=== PATIENT | male | born 1980 | race Asian ===

== ENCOUNTER 2024-09-02 14:56 | Emergency (ER) | payer OTHER, SELFPAY ==
[2024-09-02 14:57] VITALS: BMI 25.9
[2024-09-02 14:58] VITALS: BP 134/75
[2024-09-02 15:23] LABS: % Basophils 0.4 % (0-2); % Eosinophils 0.7 % (0-6); % Immature Granulocytes 0.3 % (0-0.5); % Lymphocytes 16.7 % (20.5-51.1); % Monocytes 7.7 % (1.7-9.3); % Neutrophils 74.2 % (42.2-75.2); Absolute Eosinophils 0.1 10^3/uL (0-0.7); Absolute Lymphocytes 1.7 10^3/uL (1.2-3.4); Absolute Monocytes 0.8 10^3/uL (0.1-0.6); Absolute Neutrophils 7.7 10^3/uL (1.4-6.5); Hemoglobin 16.1 g/dL (13.0-18.0); Mean Corp Hgb Conc. 34.3 g/dL (33.0-37.0); Mean Corpuscular Hgb 29.7 pg (27.0-31.0); Mean Corpuscular Volume 86.7 fL (80.0-94.0); Mean Platelet Volume 9.8 fL (7.4-10.4); Nucleated Red Blood Cells % 0 % (-); Platelet Count 199 10^3/uL (130-400); Red Blood Cell Count 5.42 10^6/uL (4.70-6.10); Red Cell Dist. Width 13.8 % (11.5-14.5); White Blood Cell Count 10.4 10^3/uL (4.8-10.8)
[2024-09-02 15:31] LABS: ALT (SGPT) 24 U/L (0-50); AST (SGOT) 28 U/L (17-59); Albumin 4.7 g/dl (3.5-5.0); Alkaline Phosphatase 95 U/L (38-126); Blood Urea Nitrogen 16 mg/dl (9-20); Calcium 9.7 mg/dl (8.4-10.2); Carbon Dioxide 32 mmol/L (22-30); Chloride 103 mmol/L (98-107); Glucose 103 mg/dl (70-99); Sodium 142 mmol/L (135-145); Total Bilirubin 0.9 mg/dl (0.2-1.3); Total Protein 7.5 g/dl (6.3-8.2); eGFR > 60.00
[2024-09-02 15:43] LABS: Troponin I < 0.012 ng/ml
[2024-09-02 17:00] VITALS: BP 121/72
[2024-09-02 18:00] VITALS: BP 132/88
--- NOTE | 2024-09-02 18:16 | ED.GENMED ---
History of Present Illness
General
Chief Complaint: Chest Pain
Time Seen by Provider: 09/02/24 17:02
History of Present Illness
History of Present Illness:
44-year-old male with history of high cholesterol presenting for chest pain. Patient reports symptoms for the past week, midsternal, worse with deep inspiration. Few days after onset, did notice some pain down the left shoulder and arm, which
resolved after few minutes. He followed up with his physician, was sent for a CT of his chest to evaluate his calcium score. He has not yet had the results. Also notes that he had a chest x-ray done. Denies any known history of cardiac disease
or significant family history. Denies any difficulty breathing. Denies cough or fever. Denies additional acute medical complaints
Phy Exam
Physical Exam
Physical Exam:
General: Well-appearing, no clinical signs of dehydration, nontoxic and in no acute distress
HEENT: protecting airway
Neck: appears supple
CV: Normal heart rate, regular rhythm
Resp: No accessory muscle use, no increased work of breathing, lungs clear to auscultation bilaterally
Abd: no distension, non-tender
Extremities: No deformities, no swelling
Neuro: alert, no focal neurologic deficit
: deferred
Rectal: deferred
Psych: Normal affect
Skin: Intact
Scores
Heart Score for Chest Pain Patients
STEMI patient?: No
History: Slightly or Non-Suspicious
ECG: Normal
Age: </= 45 years
Risk Factors: 1 or 2 Risk Factors
Troponin: </= Normal Limit
Heart Score for Chest Pain Patients: 1
Heart Score Risk: 2.5% MACE over next 6 weeks
Course
Orders/Labs/Results
Orders:
Orders
09/02/24 14:58
EKG [Electrocardiogram (*1)] Urgent
Reason for Study: Chest Pain
EKG- Treatment ONCE
09/02/24 15:09
Complete Blood Count/With Diff Urgent
Comprehensive Metabolic Panel Urgent
Troponin I Urgent
Abnormal Lab Results
09/02/24
15:09
Absolute Neuts (auto) 7.7 H 10^3/uL
(1.4-6.5)
Absolute Monos (auto) 0.8 H 10^3/uL
(0.1-0.6)
Lymphocytes % 16.7 L %
(20.5-51.1)
Carbon Dioxide 32 H mmol/L
(22-30)
Glucose 103 H mg/dl
(70-99)
09/02/24 15:09
09/02/24 15:09
Vital Signs
Initial and Last Documented VS:
Initial Vital Signs
Temp Pulse Resp BP Pulse Ox
98.1 F 78 16 134/75 98
09/02/24 14:58 09/02/24 14:58 09/02/24 14:58 09/02/24 14:58 09/02/24 14:58
Last Documented Vital Signs
Temp Pulse Resp BP Pulse Ox
98.2 F 60 16 121/72 99
09/02/24 17:00 09/02/24 17:00 09/02/24 17:00 09/02/24 17:00 09/02/24 17:00
MDM/Problems Addressed
MDM/Problems Addressed:
44-year-old male presenting for 1 week of chest pain. Vital signs are normal.
On exam, patient is resting comfortably, no acute distress or discomfort. Unremarkable cardiac and pulmonary exam. EKG obtained on arrival, nonischemic. Patient had labs obtained prior to my assessment, negative troponin. At this time, low
suspicion for ACS, minimal risk factors. Low risk by heart score. Patient without any significant respiratory symptoms, no PE risk factors. He is afebrile, nontoxic, without concern for systemic infection. Feel stable for discharge with
continued outpatient workup, already had CT imaging, pending results. Will provide information for cardiology. Return precautions discussed and patient verbalized understanding
*EKG
Interpreted by ED Provider?: Yes
EKG Intrepretation Date: 09/02/24
EKG Intrepretation Time: 18:21
Interpretation: normal
Comparison EKG: no comparison EKG present
Heart Rate: 67
Rate: normal
Rhythm: sinus
[place]: normal axis
Interval: normal interval
QRS Pattern: normal QRS
Ischemia: no ischemia
*Critical Care Note
Total Time (30-74mins, 75-104mins- exclusive of procedures): Not Applicable
ED Attending Note
-
Portions of this chart may have been created with voice recognition software.� Occasional wrong word or��sound alike� substitutions may have occurred due to the inherent limitations of voice recognition software.
Discharge Plan
Departure
Patient Disposition: Home (Routine Discharge)
Date of Disposition: 09/02/24
Time of Disposition: 18:25
Patient with high blood pressure during this ER visit?: No
Condition: Good
Discharge Problem:
Chest wall pain
Instructions: Chest pain - Discharge instructions
Referrals:
Rashad Joyner MD [Active] -
Sharri Thomas MD [Family Provider] -
Activity Restrictions/Additional Instructions:
You were seen in the emergency department for chest pain
You were found to have normal blood work and EKG
Please follow-up closely with your primary care physician. Please follow-up with a perennial house manager.
Return to the emergency department for any worsening of your symptoms, or any development of chest pain, difficulty breathing, abdominal pain with persistent vomiting and inability to tolerate food or liquid by mouth (concern for dehydration),
weakness, headache or confusion, fever greater than 100.4, or any additional symptoms that are concerning to you.
Thank you for choosing [facility].
Interventions
Interventions:
*Risk Screen - Suicide Last Done: 09/02/24 14:58
*General Assessment Last Done: 09/02/24 14:58
*Neglect/Abuse Screening Last Done: 09/02/24 14:58
*ED- Fall Risk Assessment Last Done: 09/02/24 14:58
*ED COVID-19 Vaccine History Last Done: 09/02/24 14:58
ED- Cardiac Assessment Last Done: 09/02/24 17:40
Discharge Date and Time
Print Language: ROMANIAN
== END 2024-09-02 18:33 | disposition home or self-care (01) ==
LOC: EMR 14:56
PROVIDERS: EMERGENCY PHYSICIAN Student in an Organized Health Care Education/Training Program; FAMILY PHYSICIAN Family Medicine
DX: R07.89 Other chest pain (principal); E78.00 Pure hypercholesterolemia, unspecified
CPT/HCPCS: 99284; 80053; 84484; 85025; 93005